=== PATIENT | male | born 1965 | race Caucasian/White ===

== ENCOUNTER 2017-09-23 08:54 | Day surgery (SDC) | payer OTHER ==
[~2017-09-23] VITALS: Ht 182.9 cm; Wt 120.2 kg
[~2017-09-23 08:54] MED LIST: CALAN SR,COVER180 MG PO; CELEBREX200 MG PO; CLARITIN,ALAVAR10 MG PO; ELIQUIS5 MG PO; FISH OIL 1,0001 EAC7 PO; FLECAINIDE ACET50 MG PO; FLONASE16 G1 BOTH NARES; GLUCOSAMINE &1 EAC1 PO; LISINOPRIL2.5 MG PO; LUMIGAN 0.50 DROP/22 BOTH EYES; ONE-A-DAY MEN'1 EACH PO; TIMOLOL MALEATE5 M1 BOTH EYES; VERAPAMIL HCL360 MG PO
== END 2017-09-23 12:45 | disposition home or self-care (01) ==
LOC: CATH 08:54
PROC: 5A2204Z Restoration of Cardiac Rhythm, Single (ICD-10-PCS; principal; 2017-09-23)
DX: I48.1 Persistent atrial fibrillation (principal); I48.92 Unspecified atrial flutter; Z79.01 Long term (current) use of anticoagulants; I47.1 Supraventricular tachycardia; G47.33 Obstructive sleep apnea (adult) (pediatric); I11.9 Hypertensive heart disease without heart failure
CPT/HCPCS: 93005; J2250

== ENCOUNTER → 2017-09-26 | Outpatient (CLI) | payer OTHER ==
[~2017-09-26] MED LIST changes: +TOPROL XL50 MG PO
== END | disposition home or self-care (01) ==
LOC: RAD 12:48
DX: Z01.810 Encounter for preprocedural cardiovascular examination (principal); I48.0 Paroxysmal atrial fibrillation
CPT/HCPCS: 75572

== ENCOUNTER → 2017-10-04 | Outpatient (CLI) | payer OTHER ==
[~2017-10-04] VITALS: Ht 182.9 cm; Wt 120.2 kg
== END | disposition home or self-care (01) ==
LOC: AMB 10:30
PROC: B246ZZ4 Ultrasonography of Right and Left Heart, Transesophageal (ICD-10-PCS; principal; 2017-10-04)
DX: I48.1 Persistent atrial fibrillation (principal); I11.9 Hypertensive heart disease without heart failure; I25.10 Atherosclerotic heart disease of native coronary artery without angina pectoris; I34.0 Nonrheumatic mitral (valve) insufficiency; G47.33 Obstructive sleep apnea (adult) (pediatric)
CPT/HCPCS: 93312; 93320; 93325; J2250